=== PATIENT | female | born 1930 | race Caucasian/White ===

== ENCOUNTER 2018-12-26 23:12 | Emergency (ER) | payer MEDICARE ==
[~2018-12-26] VITALS: Ht 162.6 cm; Wt 68.0 kg
[2018-12-26 23:12] VITALS: BP 165/74
--- NOTE | 2018-12-26 23:29 | PHYS DOC ---
Past Medical History Past Medical History: GERD, Hypertension Alcohol Use: None Drug Use: None Adult General Chief Complaint Chief Complaint: EYE PROBLEMS HPI HPI Patient is a 88 year old female who presents with left eye redness and discomfort. This started earlier this evening. No trauma. No photophobia, watery drainage, no change in vision. Nothing seems to make this better or worse. Patient wears reading glasses, no contact lens use, no work with welding equipment or grinding equipment[] Review of Systems Review of Systems Constitutional: Denies fever or chills [] Eyes: See history of present illness[] HENT: Denies nasal congestion or sore throat [] Respiratory: Denies cough or shortness of breath [] Cardiovascular: No chest pain or palpitations[] GI: Denies abdominal pain, nausea, vomiting, bloody stools or diarrhea [] : Denies dysuria or hematuria [] Musculoskeletal: Denies back pain or joint pain [] Integument: Denies rash or skin lesions [] Neurologic: Denies headache, focal weakness or sensory changes [] Endocrine: Denies polyuria or polydipsia [] All other systems were reviewed and found to be within normal limits, except as documented in this note. Current Medications Current Medications Current Medications Medications (Trade) Dose Ordered Sig/Feliz Start Time Stop Time Status Last Admin Dose Admin Proparacaine HCl (Alcaine) 1 drop 1X ONCE 12/26/18 23:30 12/26/18 23:31 DC 12/26/18 23:30 1 DROP Allergies Allergies Allergies Coded Allergies Type Severity Reaction Last Updated Verified No Known Drug Allergies 12/26/18 No Physical Exam Physical Exam Constitutional: Well developed, well nourished, no acute distress, non-toxic appearance. [] HENT: Normocephalic, atraumatic, bilateral external ears normal, oropharynx moist, no oral exudates, nose normal. [] Eyes: PERRLA, EOMI, left eye has an injected conjunctiva with limbic sparing, no discharge. Normal fundus, intraocular pressure of the left eye was 17 utilizing the Jermaine-Pen. Anterior chamber was clear, no cell no flare [] Neck: Normal range of motion, no tenderness, supple, no stridor. [] Cardiovascular:Heart rate regular rhythm, no murmur [] Lungs & Thorax: Bilateral breath sounds clear to auscultation [] Abdomen: Bowel sounds normal, soft, no tenderness, no masses, no pulsatile masses. [] Skin: Warm, dry, no erythema, no rash. [] Back: No tenderness, no CVA tenderness. [] Extremities: No tenderness, no cyanosis, no clubbing, ROM intact, no edema. [] Neurologic: Alert and oriented X 3, normal motor function, normal sensory function, no focal deficits noted. [] Psychologic: Affect normal, judgement normal, mood normal. [] Current Patient Data Vital Signs Vital Signs Date Time Temp Pulse Resp B/P (MAP) Pulse Ox O2 Delivery O2 Flow Rate FiO2 12/26/18 23:12 97.7 80 16 165/74 (104) 99 Room Air 97.7 EKG EKG [] Radiology/Procedures Radiology/Procedures [] Course & Med Decision Making Course & Med Decision Making Pertinent Labs and Imaging studies reviewed. (See chart for details) Medical decision making: This appears to be conjunctivitis, no evidence of narrow angle closure glaucoma, no uveitis, keratitis nor foreign body. ED course: Patient arrived, was placed in bed, in tolerated exam well. She is achieved pain relief with the Alcaine that was instilled. Patient was discharged in improved condition.[] Dragon Disclaimer Dragon Disclaimer This electronic medical record was generated, in whole or in part, using a voice recognition dictation system. Departure Departure Impression: Primary Impression: Conjunctivitis Disposition: 01 HOME, SELF-CARE Condition: IMPROVED Patient Instructions: Conjunctivitis (Viral and Bacterial) Additional Instructions: Follow up with your regular doctor in 2 days. Return to the ER if worsening pain , difficulty seeing, or any other concerns Scripts Meloxicam (MELOXICAM) 7.5 Mg Tablet 7.5 MG PO DAILY, #20 TAB Prov: UBALDO RODRÍGUEZ DO 12/26/18 Erythromycin Base (Erythromycin) 1 Gm Oint...g. 1 APPLIC OP Q4HRS W/A for 5 Days, MISC Prov: UBALDO RODRÍGUEZ DO 12/26/18 Problem Qualifiers Primary Impression: Conjunctivitis Conjunctivitis type: unspecified Laterality: left Qualified Codes: H10.9 - Unspecified conjunctivitis UBALDO RODRÍGUEZ DO Dec 26, 2018 23:29
[2018-12-26] MEDS ORDERED: PROPARACAINE 0.5% OPHTH SOLUTION 15ML BOTTLE. OS ONE (23:30)
[2018-12-26] MEDS ORDERED: MELO7.5T29 PO (23:53)
[2018-12-26] MEDS ORDERED: ERYT1OIN6 OP (23:53)
== END 2018-12-27 01:15 | disposition home or self-care (01) ==
LOC: ER 12-27 00:13
DX: H10.9 Unspecified conjunctivitis (principal); I10 Essential (primary) hypertension; K21.9 Gastro-esophageal reflux disease without esophagitis
CPT/HCPCS: 99284